=== PATIENT | male | born 1955 | race Hispanic/Latino ===

== ENCOUNTER → 2022-01-14 | Outpatient (CLI) | payer OTHER | END | disposition home or self-care (01) | LOC: RAH 13:48 | PROVIDERS: ATTEND Internal Medicine | DX: N62 Hypertrophy of breast (principal) | CPT/HCPCS: 77066 ==

== ENCOUNTER 2024-06-13 14:43 | Inpatient (IN) | payer OTHER ==
[~2024-06-13] VITALS: Ht 170.2 cm; Wt 88.5 kg
[2024-06-13 15:34] LABS: BASOPHILS # (AUTO) 0.03 K/uL (0.00-0.20); BASOPHILS % (AUTO) 0.3 % (0.0-5.0); EOSINOPHILS # (AUTO) 0.36 K/uL (0.00-0.70); HEMATOCRIT 50.7 % (42-54); IMMATURE GRANULOCYTE ABSOLUTE 0.03 K/uL (0-1); LYMPHOCYTES # (AUTO) 0.3 K/uL (1.0-4.8); LYMPHOCYTES % (AUTO) 3.8 % (21.0-51.0); MEAN CORPUSCULAR HEMOGLOBIN 31.7 pg (27.0-33.0); MEAN CORPUSCULAR HGB CONC 33.3 g/dL (32.0-36.0); MEAN CORPUSCULAR VOLUME 95.1 fL (79-99); MONOCYTES # (AUTO) 0.7 K/uL (0.1-1.0); MONOCYTES % (AUTO) 8.2 % (3.0-13.0); NEUTROPHILS # (AUTO) 7.5 K/uL (1.8-7.7); NEUTROPHILS % (AUTO) 83.4 % (40.0-77.0); PLATELET COUNT (AUTO) 188 K/uL (130-400); RED BLOOD CELL COUNT(AUTO) 5.33 MIL/uL (4.50-6.20); RED CELL DISTRIBUTION WIDTH 12.7 % (11.0-15.5); WHITE BLOOD COUNT (AUTO) 8.9 K/uL (4.8-10.8)
[2024-06-13] MEDS: 0.9%NACL 1000ML 1,000 ML IV ONE (15:38)
[2024-06-13 15:55] LABS: CREATININE 1.6 mg/dL (0.5-1.3); POTASSIUM 4.5 mmol/L (3.5-5.1)
[2024-06-13 16:04] LABS: ALBUMIN 4.3 g/dL (3.5-5.0); BILIRUBIN,TOTAL 1.2 mg/dL (0.2-1.0); TOTAL PROTEIN, SERUM 8.4 g/dL (6.0-8.3)
[2024-06-13] MEDS: LIDOCAINE HCL 2% VISCOUS 15 ML UDCUP PO ONE (17:49)
[2024-06-13] MEDS: MAG/ALUM/SIMETH 30 ML UDCUP PO ONE (17:49)
[2024-06-13] MEDS: PANTOPrazole 40 MG/VIAL IVP ONE (17:49)
[2024-06-13] MEDS ORDERED: ASPI-1005 PO (18:03)
[2024-06-13] MEDS ORDERED: MAGN400T56 PO (18:03)
[2024-06-13] MEDS ORDERED: PRED5TAB PO (18:03)
[2024-06-13] MEDS ORDERED: CARV25TA PO (18:03)
[2024-06-13] MEDS ORDERED: ROSU10TA72 PO (18:03)
[2024-06-13] MEDS ORDERED: TACR0.5C7 PO (18:03)
[2024-06-13] MEDS ORDERED: LOSA50TA64 PO (18:03)
[2024-06-13] MEDS ORDERED: PANT40TA54 PO (18:03)
[2024-06-13] MEDS ORDERED: SULF1TAB89 PO (18:03)
[2024-06-13 18:30] LABS: APPEARANCE,URINE CLOUDY (CLEAR); BILIRUBIN,URINE 0.5 mg/dL (NEGATIVE); COLOR,URINE YELLOW (YELLOW); GLUCOSE, URINE (UA) NEGATIVE (NEGATIVE); KETONES,URINE 5 mg/dL (NEGATIVE); LEUKOCYTE ESTERASE ,URINE NEGATIVE Leu/uL (NEGATIVE); NITRATE,URINE NEGATIVE (NEGATIVE); OCCULT BLOOD,URINE NEGATIVE (NEGATIVE); PH,URINE 5.5 (5.0-8.0); PROTEIN,URINE 50 mg/dL (NEGATIVE)
[2024-06-13 18:39] LABS: ADD UA MICROSCOPIC YES
[2024-06-13] MEDS ORDERED: acetaMINOPHEN 325 MG TAB PO PRN (19:00)
[2024-06-13] MEDS ORDERED: TEMAZepam 15 MG CAPSULE PO PRN (19:00)
[2024-06-13] MEDS ORDERED: hydrALAZine 20MG/ML VIAL IV PRN (19:00)
[2024-06-13] MEDS ORDERED: acetaMINOPHEN 650 MG SUPPOSITORY RC PRN (19:00)
[2024-06-13 19:15] LABS: BACTERIA,URINE FEW /HPF (None Seen); HYALINE CASTS, URINE 26-50 /LPF (0-1 /LPF); MUCUS,URINE FEW LPF (None Seen); OTHER CASTS, URINE 10 /LPF (None Seen); SQUAMOUS EPITHELIAL CELL,UR RARE /HPF (0-2)
[2024-06-13] MEDS: INSULIN humuLIN R 100 UNIT/ML 3ML SQ SCH (20:54)
[2024-06-13 22:00] VITALS: BP 129/65; PULSE 83; RESP 20; TEMP 98.6
[2024-06-13] MEDS: LACTATED RINGERS 1000ML 1,000 ML IV SCH (22:20)
[2024-06-13] MEDS: ondanSETRON 4MG INJ IVP PRN (22:38)
[2024-06-13 22:52] VITALS: O2SAT 94
[2024-06-14] VITALS (7 sets, daily range): BP systolic 95–141; BP diastolic 59–93; PULSE 77–84; RESP 19–20; TEMP 97.4–98.3; O2SAT 96–97
[2024-06-14] MEDS ORDERED: VANCOMYCIN HCL 125 MG/ 2.5 ML SOLN ORAL.SYG PO SCH (04:30)
[2024-06-14 04:45] LABS: HEMATOCRIT 43.6 % (42-54); MEAN CORPUSCULAR HEMOGLOBIN 32.2 pg (27.0-33.0); MEAN CORPUSCULAR HGB CONC 32.8 g/dL (32.0-36.0); MEAN CORPUSCULAR VOLUME 98.2 fL (79-99); RED BLOOD CELL COUNT(AUTO) 4.44 MIL/uL (4.50-6.20); WHITE BLOOD COUNT (AUTO) 4.3 K/uL (4.8-10.8)
[2024-06-14] MEDS: ceFEPime HCL 1 GM VIAL IVPB SCH (04:54)
[2024-06-14 05:03] LABS: CREATININE 1.4 mg/dL (0.5-1.3); MAGNESIUM 1.8 mg/dL (1.80-2.40); PHOSPHORUS 3.4 mg/dL (2.5-4.9); POTASSIUM 4.1 mmol/L (3.5-5.1)
[2024-06-14] MEDS: metRONIDazole 500MG/100ML BAG 100 ML IVPB SCH (06:03)
[2024-06-14] MEDS: TACROLIMUS 0.5 MG PO SCH (09:00)
[2024-06-14] MEDS ORDERED: LoSARTan 50 MG TABLET PO SCH (09:00)
[2024-06-14] MEDS ORDERED: carVEDIlol 25 MG TABLET PO SCH (09:00)
[2024-06-14] MEDS: MAGNESIUM OXIDE 400 MG TABLET PO SCH (10:04)
[2024-06-14] MEDS: PANTOPrazole 40 MG TAB DR PO SCH (10:04)
[2024-06-14] MEDS: atorVAStatin 40 MG TABLET PO SCH (10:04)
[2024-06-14] MEDS: ASPIRIN 81MG CHEW TAB PO SCH (10:04)
[2024-06-14] MEDS: predniSONE 5 MG TABLET PO SCH (10:04)
[2024-06-14] MEDS: ENOXAPARIN SODIUM 30 MG/0.3 ML SQ SCH (10:05)
[2024-06-14] MEDS ORDERED: VANCOMYCIN HCL 250/5ML SOLN ORAL.SYG PO SCH (13:00)
[2024-06-14] MEDS ORDERED: COMPOUND PO REF 1 EA BTL MISC PRN (13:30)
[2024-06-14] MEDS ORDERED: COMPOUND PO MISCELLANEOUS 1 EACH MISC MISC PRN (16:00)
[2024-06-14 16:38] LABS: INFLUENZA TYPE A Negative For Type A (NEGATIVE); INFLUENZA TYPE B Negative For Type B (NEGATIVE)
[2024-06-14 16:56] LABS: SARS-CoV-2, RNA, NAAT NEGATIVE SARS CoV-2 (NEGATIVE)
[2024-06-14] MEDS: VANCOMYCIN HCL 250/5ML SOLN ORAL.SYG PO SCH (17:42)
[2024-06-15] VITALS (8 sets, daily range): BP systolic 111–148; BP diastolic 61–98; PULSE 69–85; RESP 16–20; TEMP 97.6–98.2; O2SAT 97–99
[2024-06-15 04:09] LABS: HEMATOCRIT 40.2 % (42-54); MEAN CORPUSCULAR HEMOGLOBIN 32.6 pg (27.0-33.0); MEAN CORPUSCULAR HGB CONC 33.1 g/dL (32.0-36.0); MEAN CORPUSCULAR VOLUME 98.5 fL (79-99); RED BLOOD CELL COUNT(AUTO) 4.08 MIL/uL (4.50-6.20); RED CELL DISTRIBUTION WIDTH 13.1 % (11.0-15.5); WHITE BLOOD COUNT (AUTO) 4.1 K/uL (4.8-10.8)
[2024-06-15 04:33] LABS: ALBUMIN 3.1 g/dL (3.5-5.0); BILIRUBIN,TOTAL 0.5 mg/dL (0.2-1.0); CREATININE 1.2 mg/dL (0.5-1.3); MAGNESIUM 1.9 mg/dL (1.80-2.40); POTASSIUM 3.7 mmol/L (3.5-5.1); TOTAL PROTEIN, SERUM 6.2 g/dL (6.0-8.3)
[2024-06-15] MEDS ORDERED: AZIT250T9 PO (13:22)
[2024-06-15] MEDS ORDERED: CHOL500051 PO (13:22)
[2024-06-15] MEDS ORDERED: CALC-910 PO (13:22)
[2024-06-15] MEDS ORDERED: ASCO500T19 PO (13:22)
[2024-06-15] MEDS ORDERED: L. A1TAB15 PO (13:22)
[2024-06-15] MEDS ORDERED: MULT-1203 PO (13:22)
[2024-06-15] MEDS ORDERED: MYCO500T PO (13:22)
[2024-06-15] MEDS: MYCOPHENOLATE MOFETIL 250 MG CAPSULE PO SCH (20:41)
[2024-06-16 04:00] VITALS: BP 159/90; PULSE 77; RESP 18; TEMP 98.5
[2024-06-16 08:00] VITALS: BP 143/96; PULSE 76; RESP 18; TEMP 97.7
[2024-06-16 08:15] VITALS: O2SAT 94
[2024-06-16] MEDS: MYCOPHENOLATE MOFETIL 250 MG CAPSULE PO SCH (09:00)
[2024-06-16 12:00] VITALS: BP 155/94; PULSE 80; RESP 17; TEMP 98.6
[2024-06-16 14:13] LABS: C DIFFICILE TOXIN A/B Detected (Not Detected); ENTEROAGGREGATIVE ECOLI Not Detected (Not Detected); GIARDIA LAMBLIA Not Detected (Not Detected); PLESIOMONAS SHIGELOIDES Not Detected (Not Detected); SAPOVIRUS Not Detected (Not Detected); SHIGELLA/ENTEROINVASIVE E COLI Not Detected (Not Detected); VIBRIO Not Detected (Not Detected); VIBRIO CHOLERAE Not Detected (Not Detected)
[2024-06-16] MEDS ORDERED: VANC500V5 PO (15:34)
[2024-06-16 16:00] VITALS: BP 140/95; PULSE 79; RESP 17; TEMP 98.2
== END 2024-06-16 16:30 | disposition home or self-care (01) | DRG 372 ==
LOC: EDH 14:43 → EDHIP 18:17 → 4AH 20:23 → UNDODISIN 06-14 20:22
PROVIDERS: ADMIT Internal Medicine Critical Care Medicine; ATTEND Internal Medicine Critical Care Medicine
DX: A04.71 Enterocolitis due to Clostridium difficile, recurrent (principal); D84.821 Immunodeficiency due to drugs; N17.9 Acute kidney failure, unspecified; Z94.2 Lung transplant status; Z94.4 Liver transplant status; I10 Essential (primary) hypertension; A08.11 Acute gastroenteropathy due to Norwalk agent; K57.30 Diverticulosis of large intestine without perforation or abscess without bleeding; J84.10 Pulmonary fibrosis, unspecified; T36.8X5A Adverse effect of other systemic antibiotics, initial encounter; E86.0 Dehydration; I25.10 Atherosclerotic heart disease of native coronary artery without angina pectoris; Z68.30 Body mass index [BMI] 30.0-30.9, adult; E66.9 Obesity, unspecified; Z79.60 Long term (current) use of unspecified immunomodulators and immunosuppressants; Z79.899 Other long term (current) drug therapy; Z79.2 Long term (current) use of antibiotics
CPT/HCPCS: 36415; 74176; 80048; 80053; 81001; 82550; 82948; 83690; 83735; 84100; 84484; 85025; 85027; 87324; 87493; 87507; 87635; 87804; G0378; J0692; J1650; J2405; J2470; J3370; J3490; J7030; J7507; J7512; J7517